=== PATIENT | female | born 1975 | race Caucasian/White ===

== ENCOUNTER → 2022-02-21 | Outpatient (CLI) | payer OTHER ==
[~2022-02-21] MED LIST: LEVOXYL0.112 MG
== END ==
LOC: COL.RAD 11:40
DX: R19.09 Other intra-abdominal and pelvic swelling, mass and lump (principal); R10.33 Periumbilical pain

== ENCOUNTER → 2022-03-23 | Outpatient (CLI) | payer OTHER | LOC: ZCOL.LAB 16:40 | DX: R10.33 Periumbilical pain (principal) ==